=== PATIENT | female | born 1980 | race American Indian/Alaskan Native ===

== ENCOUNTER 2020-12-29 22:04 | Emergency (ER) | payer SELFPAY | END 2020-12-30 00:53 | disposition left against medical advice (07) | LOC: ED 22:04 | DX: M54.9 Dorsalgia, unspecified (principal); Z53.21 Procedure and treatment not carried out due to patient leaving prior to being seen by health care provider ==

== ENCOUNTER 2020-12-30 08:37 | Emergency (ER) | payer SELFPAY ==
--- NOTE | 2020-12-30 09:38 | Emergency Department Report ---
ED Back Pain/Injury HPI - General Chief Complaint: Extremity Injury, Lower Stated Complaint: LOW BACK PAIN Time Seen by Provider: 12/30/20 09:38 Source: patient Limitations: No Limitations - History of Present Illness Initial Comments: 40-year-old female who denies any significant past medical history presents to the ER today with complaints of lumbar pain. Patient states that her symptoms gradually started about 2 days ago. Patient states that she had fallen asleep in a sitting position and when she woke up she started having pain in her back. She states that the pain is worse with certain position and certain movements. She states that the pain has been intermittent, and she has been taking [id number] medication as well as using rubs but does provide partial relief of her pain. She states that the pain is nonradiating. She denies any associate abdominal pain with it. She denies any saddle anesthesia, lower extremity numbness, tingling or weakness, bowel or bladder incontinence or any abdominal pain, chest pain or UTI symptoms. Patient denies any prior issues with her back in the past including surgeries. MD Complaint: back pain -: Gradual, days(s) Similar Symptoms Previously: No Place: home - Related Data Previous Rx's Medication Instructions Recorded Last Taken Type Ibuprofen [Motrin] 600 mg PO Q8H PRN #30 tablet 12/30/20 Unknown Rx methOCARBAMOL [Robaxin TAB] 750 mg PO Q8H PRN #30 tablet 12/30/20 Unknown Rx methylPREDNISolone [Medrol 4MG 4 mg PO DAILY #1 tab.ds.pk 12/30/20 Unknown Rx DOSEPAK (21 tabs)] Allergies Allergy/AdvReac Type Severity Reaction Status Date / Time No Known Allergies Allergy Unverified 12/30/20 09:32 ED Review of Systems ROS: Stated complaint: LOW BACK PAIN Other details as noted in HPI Comment: All other systems reviewed and negative Constitutional: denies: chills, fever Eyes: denies: eye pain, eye discharge, vision change ENT: denies: ear pain, throat pain Respiratory: denies: cough, shortness of breath, SOB with exertion, SOB at rest, wheezing Cardiovascular: denies: chest pain, palpitations Endocrine: no symptoms reported Gastrointestinal: denies: abdominal pain, nausea, vomiting, diarrhea, constipation, hematemesis, hematochezia Genitourinary: denies: urgency, dysuria, frequency, hematuria, discharge, abnormal menses, dyspareunia Musculoskeletal: back pain. denies: joint swelling, arthralgia, myalgia Skin: denies: rash, lesions, change in color, change in hair/nails, pruritus Neurological: denies: headache, weakness, numbness, paresthesias, confusion, ab normal gait, vertigo Psychiatric: denies: anxiety, depression, auditory hallucinations, visual hallucinations, homicidal thoughts, suicidal thoughts Hematological/Lymphatic: denies: easy bleeding, easy bruising, swollen glands ED Past Medical Hx - Past Medical History Previous Medical History?: No - Surgical History Past Surgical History?: No - Medications Home Medications: Home Medications Medication Instructions Recorded Confirmed Last Taken Type Ibuprofen [Motrin] 600 mg PO Q8H PRN #30 tablet 12/30/20 Unknown Rx methOCARBAMOL [Robaxin TAB] 750 mg PO Q8H PRN #30 tablet 12/30/20 Unknown Rx methylPREDNISolone [Medrol 4MG 4 mg PO DAILY #1 tab.ds.pk 12/30/20 Unknown Rx DOSEPAK (21 tabs)] ED Physical Exam - General Limitations: No Limitations General appearance: alert, in distress (secondary to pain) - Head Head exam: Present: atraumatic, normocephalic, normal inspection - Eye Eye exam: Present: normal appearance, PERRL, EOMI Pupils: Present: normal accommodation - Neck Neck exam: Present: normal inspection, full ROM - Respiratory Respiratory exam: Present: normal lung sounds bilaterally. Absent: respiratory distress, wheezes, rales, rhonchi - Cardiovascular Cardiovascular Exam: Present: regular rate, normal rhythm, normal heart sounds - GI/Abdominal GI/Abdominal exam: Present: soft. Absent: distended, tenderness, guarding, rebound - Back Exam Back exam: Present: full ROM (there is mild pain on flexion and left and right rotation and on extension of lumbar spine but otherwise she has full ROM of spine), muscle spasm (bilateral paraspinal muscle lumbar area), other (Pt pain is more with ROM, then on palpation). Absent: CVA tenderness (R), CVA tenderness (L), paraspinal tenderness, vertebral tenderness - Neurological Exam Neurological exam: Present: alert, oriented X3, CN II-XII intact, normal gait. Absent: motor sensory deficit - Psychiatric Psychiatric exam: Present: normal affect, normal mood - Skin Skin exam: Present: intact ED Course Vital Signs 12/30/20 12/30/20 12/30/20 09:30 10:57 12:28 Temperature 98.2 F Pulse Rate 89 Respiratory 20 16 Rate Blood Pressure 187/110 Blood Pressure 184/101 [Left] Blood Pressure 206/105 [Right] O2 Sat by Pulse 100 Oximetry 12/30/20 12/30/20 12/30/20 12:29 13:05 14:00 Temperature Pulse Rate 66 68 Respiratory 16 16 16 Rate Blood Pressure Blood Pressure [Left] Blood Pressure 142/91 138/89 [Right] O2 Sat by Pulse 98 Oximetry ED Medical Decision Making - Lab Data Result diagrams: 12/30/20 11:44 12/30/20 11:44 - Medical Decision Making Patient currently resting comfortably. She reports improvement of her pain after oral meds given here in the ER. She is currently not toxic or ill- appearing. She is not in any severe distress. She is neurologically intact with a normal gait. All labs reviewed and unremarkable Patient blood pressure improved Her history, physical examination and diagnostic testing does not suggest the presence of acute spinal epidural abscess, acute epidural bleed, cauda equina syndrome, abdominal/thoracic aortic aneurysm, aortic dissection, UTI, kidney stone, pyelonephritis or other acute process requiring further testing, treatment or consultation in the emergency department at this time. Suspect back spasms. Discussed lab results with patient. Informed her that her BP has improved during but recommend that she follows up with her PCP for continue monitoring and to see if she may need to be started on blood pressure medication. Discussed suspected diagnosis and treatment plan with patient. Patient expressed und erstanding of all instructions and agree with plan. Patient was stable at time of discharge. Critical care attestation.: If time is entered above; I have spent that time in minutes in the direct care of this critically ill patient, excluding procedure time. ED Disposition Clinical Impression: Back muscle spasm Disposition: 01 HOME / SELF CARE / HOMELESS Is pt being admited?: No Does the pt Need Aspirin: No Condition: Stable Instructions: Muscle Cramps and Spasms, [id number], Acute Back Pain, Adult, Back Exercises, [id number] Additional Instructions: I recommend that you take the Robaxin, the Medrol Dosepak, and ibuprofen as prescribed. I recommend that you do the back stretching exercises listed on your discharge instructions. I recommend that you follow-up with either your primary care doctor continued monitoring of your blood pressure or the technical service specialist provided on your discharge instructions especially if your symptoms continue for another 1 to 2 weeks. Return to the ER if your symptoms changes or worsens in any way. Prescriptions: methylPREDNISolone [Medrol 4MG DOSEPAK (21 tabs)] 4 mg PO DAILY #1 tab.ds.pk Ibuprofen [Motrin] 600 mg PO Q8H PRN #30 tablet PRN Reason: Pain methOCARBAMOL [Robaxin TAB] 750 mg PO Q8H PRN #30 tablet PRN Reason: Muscle Spasm Referrals: [facility] [Provider Group] - 3-5 Days (Primary care physician) NICOLASA FINN MD [Staff Physician] - 3-5 Days (Primary care physician) [facility] [Provider Group] - 3-5 Days (Orthospine specialist) Forms: Work/School Release Form(ED) Time of Disposition: 09:48
[2020-12-30] MEDS ORDERED: HYDROcodone/ACETAMINOPHEN 5-325 MG TAB PO ONE (10:58)
[2020-12-30] MEDS ORDERED: KETOROLAC 60 MG/2 ML INJ IM ONE (10:58)
[2020-12-30] MEDS ORDERED: CYCLOBENZAPRINE 10 MG TAB PO ONE (10:58)
[2020-12-30 11:26] LABS: Bilirubin,Urine NEG (Negative); Blood,Urine NEG (Negative); Color,Urine Yellow (Yellow); Mucus,Urine FEW /HPF
[2020-12-30 12:07] LABS: Protein,Urine <15 mg/dL mg/dL (Negative)
[2020-12-30 12:32] LABS: Basophils % (Auto) 0.2 % (0.0-1.8); Eosinophils % (Auto) 0.3 % (0.0-4.3); Hematocrit 37.1 % (30.3-42.9); Hemoglobin 12.5 gm/dl (10.1-14.3); Lymphocytes # (Auto) 2.3 K/mm3 (1.2-5.4); Lymphocytes % (Auto) 41.6 % (13.4-35.0); Mean Corpuscular HGB Conc 34 % (30-34); Mean Corpuscular Volume 91 fl (79-97); Monocytes # (Auto) 0.5 K/mm3 (0.0-0.8); Monocytes % (Auto) 8.4 % (0.0-7.3); Platelet Count 212 K/mm3 (140-440); Red Blood Count 4.07 M/mm3 (3.65-5.03)
[2020-12-30 12:48] LABS: Alanine Aminotransferase 11 units/L (7-56); Albumin 4.5 g/dL (3.9-5); Blood Urea Nitrogen 11 mg/dL (7-17); Calcium 9.7 mg/dL (8.4-10.2); Hemolysis Index 1
[2020-12-30 12:51] LABS: BUN/Creatinine Ratio 22
[2020-12-30 14:02] VITALS: BP 138/89
== END 2020-12-30 14:00 | disposition home or self-care (01) ==
LOC: ED 08:37
DX: M62.830 Muscle spasm of back (principal); M54.5 Low back pain; Z79.899 Other long term (current) drug therapy
CPT/HCPCS: 36415; 80053; 81001; 84703; 85025; 96372; 99283; J1885

== ENCOUNTER 2021-08-02 17:15 | Emergency (ER) | payer MEDICAID, OTHER ==
[2021-08-02] MEDS ORDERED: KETOROLAC 10 MG TAB PO ONE (19:33)
[2021-08-02] MEDS ORDERED: DEXAMETHASONE 4 MG TAB PO ONE (19:33)
[2021-08-02] MEDS ORDERED: oxyCODONE /ACETAMINOPHEN 5-325MG TAB PO ONE (19:33)
[2021-08-02] MEDS ORDERED: AMOXICILLIN/K CLAV 875/125MG TAB PO ONE (19:33)
--- NOTE | 2021-08-02 19:37 | Emergency Department Report ---
ED ENT HPI - General Chief complaint: Dental/Oral Stated complaint: TOOTHACHE Time Seen by Provider: 08/02/21 18:15 Source: patient Mode of arrival: Ambulatory Limitations: No Limitations - History of Present Illness Initial comments: 40-year-old black female with no past medical history presents to the emergency department for evaluation of 2-day history of worsening right lower toothache with right jaw pain and swelling. She denies fever and states that pain has been unrelieved by ibuprofen and Tylenol. MD complaint: tooth pain -: days(s) (To) Location: tooth # (31) Severity: severe Severity scale (0 -10): 10 Quality: aching Consistency: constant Context- Dental: history of dental caries, poor dental care Associated Symptoms: gum swelling, toothache. denies: fever, pain with swallowing, sore throat, rhinorrhea - Related Data Previous Rx's Medication Instructions Recorded Last Taken Type Ibuprofen [Motrin] 600 mg PO Q8H PRN #30 tablet 12/30/20 Unknown Rx methOCARBAMOL [Robaxin TAB] 750 mg PO Q8H PRN #30 tablet 12/30/20 Unknown Rx methylPREDNISolone [Medrol 4MG 4 mg PO DAILY #1 tab.ds.pk 12/30/20 Unknown Rx DOSEPAK (21 tabs)] Acetaminophen/Codeine [Tylenol 1 tab PO Q6H PRN #10 tab 08/02/21 Unknown Rx /Codeine # 3 tab] Amoxicillin/K Clav Tab [Augmentin 1 tab PO Q12HR #14 tab 08/02/21 Unknown Rx 875 mg] Ketorolac [Toradol] 10 mg PO Q6H PRN #10 tab 08/02/21 Unknown Rx Allergies Allergy/AdvReac Type Severity Reaction Status Date / Time No Known Allergies Allergy Unverified 12/30/20 09:32 ED Dental HPI - General Chief complaint: Dental/Oral Stated complaint: TOOTHACHE Time Seen by Provider: 08/02/21 18:15 Source: patient Mode of arrival: Ambulatory Limitations: No Limitations - Related Data Previous Rx's Medication Instructions Recorded Last Taken Type Ibuprofen [Motrin] 600 mg PO Q8H PRN #30 tablet 12/30/20 Unknown Rx methOCARBAMOL [Robaxin TAB] 750 mg PO Q8H PRN #30 tablet 12/30/20 Unknown Rx methylPREDNISolone [Medrol 4MG 4 mg PO DAILY #1 tab.ds.pk 12/30/20 Unknown Rx DOSEPAK (21 tabs)] Acetaminophen/Codeine [Tylenol 1 tab PO Q6H PRN #10 tab 08/02/21 Unknown Rx /Codeine # 3 tab] Amoxicillin/K Clav Tab [Augmentin 1 tab PO Q12HR #14 tab 08/02/21 Unknown Rx 875 mg] Ketorolac [Toradol] 10 mg PO Q6H PRN #10 tab 08/02/21 Unknown Rx Allergies Allergy/AdvReac Type Severity Reaction Status Date / Time No Known Allergies Allergy Unverified 12/30/20 09:32 ED Review of Systems ROS: Stated complaint: TOOTHACHE Other details as noted in HPI Comment: All other systems reviewed and negative Constitutional: denies: chills, fever Eyes: denies: vision change ENT: dental pain. denies: ear pain, throat pain, epistaxis, congestion Respiratory: denies: shortness of breath Cardiovascular: denies: chest pain, palpitations, dyspnea on exertion Gastrointestinal: denies: abdominal pain, nausea, vomiting Genitourinary: denies: dysuria Musculoskeletal: denies: back pain ED Past Medical Hx - Past Medical History Previous Medical History?: Yes Hx Hypertension: Yes (no meds) - Surgical History Past Surgical History?: No - Medications Home Medications: Home Medications Medication Instructions Recorded Confirmed Last Taken Type Ibuprofen [Motrin] 600 mg PO Q8H PRN #30 tablet 12/30/20 Unknown Rx methOCARBAMOL [Robaxin TAB] 750 mg PO Q8H PRN #30 tablet 12/30/20 Unknown Rx methylPREDNISolone [Medrol 4MG 4 mg PO DAILY #1 tab.ds.pk 12/30/20 Unknown Rx DOSEPAK (21 tabs)] Acetaminophen/Codeine [Tylenol 1 tab PO Q6H PRN #10 tab 08/02/21 Unknown Rx /Codeine # 3 tab] Amoxicillin/K Clav Tab [Augmentin 1 tab PO Q12HR #14 tab 08/02/21 Unknown Rx 875 mg] Ketorolac [Toradol] 10 mg PO Q6H PRN #10 tab 08/02/21 Unknown Rx ED Physical Exam - General Limitations: No Limitations General appearance: alert, in no apparent distress - Head Head exam: Present: atraumatic, normocephalic - Expanded Head Exam Expanded 1 - Tenderness and swelling noted - Eye Eye exam: Present: normal appearance. Absent: conjunctival injection - Expanded ENT Exam Expanded Mouth exam: Present: normal external inspection Teeth exam: Present: dental caries, dental tenderness # (31), other (Dental abscess noted around tooth #31 along with erythema and edema to jaw surrounding same area. Area tender to any touch.) - Respiratory Respiratory exam: Absent: respiratory distress - Cardiovascular Cardiovascular Exam: Present: bradycardia - GI/Abdominal GI/Abdominal exam: Absent: distended - Extremities Exam Extremities exam: Present: normal inspection - Back Exam Back exam: Present: normal inspection - Neurological Exam Neurological exam: Present: alert, oriented X3 - Psychiatric Psychiatric exam: Present: normal affect, normal mood - Skin Skin exam: Present: warm, dry, intact, normal color ED Course Vital Signs 08/02/21 17:49 Temperature 98.8 F Pulse Rate 48 L Respiratory 20 Rate Blood Pressure 207/88 [Right] O2 Sat by Pulse 99 Oximetry ED Medical Decision Making - Medical Decision Making 40-year-old black female with no past medical history presents to the emergency department for evaluation of 2-day history of worsening right lower toothache with right jaw pain and swelling. She denies fever and states that pain has been unrelieved by ibuprofen and Tylenol. Abscess noted to tooth #31. Patient will be treated with antibiotics, anti- inflammatories, and pain medication. She is advised to follow-up with dentist as soon as possible for further management. She verbalized understanding of and agreement with plan of care. Critical care attestation.: If time is entered above; I have spent that time in minutes in the direct care of this critically ill patient, excluding procedure time. ED Disposition Clinical Impression: Dental abscess Disposition: HOME / SELF CARE / HOMELESS Is pt being admited?: No Does the pt Need Aspirin: No Condition: Stable Instructions: Dental Abscess, [id number] Additional Instructions: Take medications as prescribed. Follow-up with dentist Prescriptions: Amoxicillin/K Clav Tab [Augmentin 875 mg] 1 tab PO Q12HR #14 tab Ketorolac [Toradol] 10 mg PO Q6H PRN #10 tab PRN Reason: Pain Acetaminophen/Codeine [Tylenol /Codeine # 3 tab] 1 tab PO Q6H PRN #10 tab PRN Reason: Pain , Severe (7-10) Referrals: [facility] [Outside] - 3-5 Days [facility] [Outside] - 3-5 Days Time of Disposition: 19:37
[2021-08-02 20:40] VITALS: BP 198/92
== END 2021-08-02 20:42 | disposition home or self-care (01) ==
LOC: ED 17:15
DX: K04.7 Periapical abscess without sinus (principal); I10 Essential (primary) hypertension; Z79.899 Other long term (current) drug therapy
CPT/HCPCS: 99282; J8540

== ENCOUNTER 2021-09-29 02:54 | Emergency (ER) | payer SELFPAY ==
--- NOTE | 2021-09-29 08:01 | Emergency Department Report ---
ED ENT HPI - General Chief complaint: Dental/Oral Stated complaint: TOOTHACHE Time Seen by Provider: 09/29/21 07:47 Source: patient Mode of arrival: Ambulatory Limitations: No Limitations - History of Present Illness Initial comments: 40-year-old female presents to the ER today with complaints of dental pain to her right lower jaw. She states that she had a bad tooth in that area for a while but yesterday it started to become painful and swollen. She does not currently have a dentist. She denies any difficulty swallowing,, trismus, difficulty breathing, fever, chills or any additional symptoms MD complaint: tooth pain -: days(s) Severity: moderate, severe - Related Data Previous Rx's Medication Instructions Recorded Last Taken Type methOCARBAMOL [Robaxin TAB] 750 mg PO Q8H PRN #30 tablet 12/30/20 Unknown Rx methylPREDNISolone [Medrol 4MG 4 mg PO DAILY #1 tab.ds.pk 12/30/20 Unknown Rx DOSEPAK (21 tabs)] Amoxicillin/K Clav Tab [Augmentin 1 tab PO Q12HR #14 tab 08/02/21 Unknown Rx 875 mg] Ketorolac [Toradol] 10 mg PO Q6H PRN #10 tab 08/02/21 Unknown Rx Acetaminophen/Codeine [Tylenol 1 tab PO Q6H PRN #10 tab 09/29/21 Unknown Rx /Codeine # 3 tab] Clindamycin [Clindamycin CAP] 300 mg PO Q6H #40 cap 09/29/21 Unknown Rx Ibuprofen [Motrin 600 MG tab] 600 mg PO Q8H PRN #30 tablet 09/29/21 Unknown Rx Allergies Allergy/AdvReac Type Severity Reaction Status Date / Time No Known Allergies Allergy Unverified 12/30/20 09:32 ED Dental HPI - General Chief complaint: Dental/Oral Stated complaint: TOOTHACHE Time Seen by Provider: 09/29/21 07:47 Source: patient Mode of arrival: Ambulatory Limitations: No Limitations - Related Data Previous Rx's Medication Instructions Recorded Last Taken Type methOCARBAMOL [Robaxin TAB] 750 mg PO Q8H PRN #30 tablet 12/30/20 Unknown Rx methylPREDNISolone [Medrol 4MG 4 mg PO DAILY #1 tab.ds.pk 12/30/20 Unknown Rx DOSEPAK (21 tabs)] Amoxicillin/K Clav Tab [Augmentin 1 tab PO Q12HR #14 tab 08/02/21 Unknown Rx 875 mg] Ketorolac [Toradol] 10 mg PO Q6H PRN #10 tab 08/02/21 Unknown Rx Acetaminophen/Codeine [Tylenol 1 tab PO Q6H PRN #10 tab 09/29/21 Unknown Rx /Codeine # 3 tab] Clindamycin [Clindamycin CAP] 300 mg PO Q6H #40 cap 09/29/21 Unknown Rx Ibuprofen [Motrin 600 MG tab] 600 mg PO Q8H PRN #30 tablet 09/29/21 Unknown Rx Allergies Allergy/AdvReac Type Severity Reaction Status Date / Time No Known Allergies Allergy Unverified 12/30/20 09:32 ED Review of Systems ROS: Stated complaint: TOOTHACHE Other details as noted in HPI Comment: All other systems reviewed and negative Constitutional: denies: chills, fever Eyes: denies: eye pain, eye discharge, vision change ENT: dental pain Respiratory: denies: cough, shortness of breath, wheezing Cardiovascular: denies: chest pain, palpitations Gastrointestinal: denies: abdominal pain, nausea, diarrhea Genitourinary: denies: urgency, dysuria, discharge Neurological: denies: headache, weakness, paresthesias Psychiatric: denies: anxiety, depression Hematological/Lymphatic: denies: easy bleeding, easy bruising ED Past Medical Hx - Past Medical History Hx Hypertension: Yes (no meds) - Medications Home Medications: Home Medications Medication Instructions Recorded Confirmed Last Taken Type methOCARBAMOL [Robaxin TAB] 750 mg PO Q8H PRN #30 tablet 12/30/20 Unknown Rx methylPREDNISolone [Medrol 4MG 4 mg PO DAILY #1 tab.ds.pk 12/30/20 Unknown Rx DOSEPAK (21 tabs)] Amoxicillin/K Clav Tab [Augmentin 1 tab PO Q12HR #14 tab 08/02/21 Unknown Rx 875 mg] Ketorolac [Toradol] 10 mg PO Q6H PRN #10 tab 08/02/21 Unknown Rx Acetaminophen/Codeine [Tylenol 1 tab PO Q6H PRN #10 tab 09/29/21 Unknown Rx /Codeine # 3 tab] Clindamycin [Clindamycin CAP] 300 mg PO Q6H #40 cap 09/29/21 Unknown Rx Ibuprofen [Motrin 600 MG tab] 600 mg PO Q8H PRN #30 tablet 09/29/21 Unknown Rx ED Physical Exam - General Limitations: No Limitations General appearance: alert, in no apparent distress - Head Head exam: Present: atraumatic, normocephalic, normal inspection - Eye Eye exam: Present: normal appearance, PERRL, EOMI Pupils: Present: normal accommodation - ENT ENT exam: Present: mucous membranes moist - Expanded ENT Exam Expanded Mouth exam: Present: other (Mild swelling right lower jaw, no facial cellulitis). Absent: drooling, trismus, muffled voice, tongue normal, tongue elevation, laceration Teeth exam: Present: dental caries, dental tenderness # 1 - Dental Tenderness (moderate), Other (severe dental decay with associated dental abscess) Throat exam: Positive: normal inspection - Neck Neck exam: Present: normal inspection, full ROM. Absent: meningismus - Respiratory Respiratory exam: Absent: respiratory distress - Cardiovascular Cardiovascular Exam: Present: regular rate - Neurological Exam Neurological exam: Present: alert, oriented X3, CN II-XII intact, normal gait - Psychiatric Psychiatric exam: Present: normal affect, normal mood ED Course Vital Signs 09/29/21 03:14 Temperature 97.6 F Pulse Rate 85 Respiratory 13 Rate Blood Pressure 153/90 O2 Sat by Pulse 99 Oximetry Critical care attestation.: If time is entered above; I have spent that time in minutes in the direct care of this critically ill patient, excluding procedure time. ED Disposition Clinical Impression: Dental abscess Disposition: 01 HOME / SELF CARE / HOMELESS Is pt being admited?: No Does the pt Need Aspirin: No Condition: Stable Instructions: Dental Abscess, [id number] Additional Instructions: I recommend that you take the antibiotics and take them to completion. Take the ibuprofen to help with pain and you can do warm salt water rinses. Follow-up with the dental clinics on the dental list given to you. Return to the ER if symptoms changes or worsens in any way. Prescriptions: Clindamycin [Clindamycin CAP] 300 mg PO Q6H #40 cap Ibuprofen [Motrin 600 MG tab] 600 mg PO Q8H PRN #30 tablet PRN Reason: Pain Acetaminophen/Codeine [Tylenol /Codeine # 3 tab] 1 tab PO Q6H PRN #10 tab PRN Reason: Pain , Severe (7-10) Referrals: ELIJAH MOSS MD [Staff Physician] - 3-5 Days Time of Disposition: 08:01
[2021-09-29 08:42] VITALS: BP 124/78
== END 2021-09-29 08:42 | disposition home or self-care (01) ==
LOC: ED 02:54
DX: K04.7 Periapical abscess without sinus (principal); I10 Essential (primary) hypertension
CPT/HCPCS: 99282

== ENCOUNTER 2021-11-04 10:28 | Emergency (ER) | payer MEDICAID | END 2021-11-04 17:37 | disposition left against medical advice (07) | LOC: ED 10:28 | DX: R51.9 Headache, unspecified (principal); K08.89 Other specified disorders of teeth and supporting structures; Z53.21 Procedure and treatment not carried out due to patient leaving prior to being seen by health care provider ==

== ENCOUNTER 2021-11-05 10:33 | Emergency (ER) | payer SELFPAY ==
--- NOTE | 2021-11-05 10:53 | Emergency Department Report ---
ED ENT HPI - General Chief complaint: Dental/Oral Stated complaint: RT SIDE TOOTHACHE Time Seen by Provider: 11/05/21 10:46 Source: patient Mode of arrival: Ambulatory Limitations: No Limitations - History of Present Illness Initial comments: Patient is a 40-year-old that comes to the emergency room complaining of right lower dental pain. 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 She states she did finally get an appointment for December. But the pain in her right mandibular molar is worsening. She has no Ludewig's. No trismus. No abscess. She is controlling secretions. Ambulatory to ER with no difficulty - Related Data Previous Rx's Medication Instructions Recorded Last Taken Type methOCARBAMOL [Robaxin TAB] 750 mg PO Q8H PRN #30 tablet 12/30/20 Unknown Rx methylPREDNISolone [Medrol 4MG 4 mg PO DAILY #1 tab.ds.pk 12/30/20 Unknown Rx DOSEPAK (21 tabs)] Amoxicillin/K Clav Tab [Augmentin 1 tab PO Q12HR #14 tab 08/02/21 Unknown Rx 875 mg] Ketorolac [Toradol] 10 mg PO Q6H PRN #10 tab 08/02/21 Unknown Rx Acetaminophen/Codeine [Tylenol 1 tab PO Q6H PRN #10 tab 09/29/21 Unknown Rx /Codeine # 3 tab] Clindamycin [Clindamycin CAP] 300 mg PO Q6H #40 cap 09/29/21 Unknown Rx Ibuprofen [Motrin 600 MG tab] 600 mg PO Q8H PRN #30 tablet 09/29/21 Unknown Rx Amoxicillin [Trimox CAP] 500 mg PO BID #20 capsule 11/05/21 Unknown Rx Ibuprofen [Motrin] 800 mg PO Q8HR PRN #30 tablet 11/05/21 Unknown Rx Allergies Allergy/AdvReac Type Severity Reaction Status Date / Time No Known Allergies Allergy Unverified 12/30/20 09:32 ED Dental HPI - General Chief complaint: Dental/Oral Stated complaint: RT SIDE TOOTHACHE Time Seen by Provider: 11/05/21 10:46 Source: patient Mode of arrival: Ambulatory Limitations: No Limitations - Related Data Previous Rx's Medication Instructions Recorded Last Taken Type methOCARBAMOL [Robaxin TAB] 750 mg PO Q8H PRN #30 tablet 08/24/21 Unknown Rx methylPREDNISolone [Medrol 4MG 4 mg PO DAILY #1 tab.ds.pk 12/30/20 Unknown Rx DOSEPAK (21 tabs)] Amoxicillin/K Clav Tab [Augmentin 1 tab PO Q12HR #14 tab 08/02/21 Unknown Rx 875 mg] Ketorolac [Toradol] 10 mg PO Q6H PRN #10 tab 08/02/21 Unknown Rx Acetaminophen/Codeine [Tylenol 1 tab PO Q6H PRN #10 tab 09/29/21 Unknown Rx /Codeine # 3 tab] Clindamycin [Clindamycin CAP] 300 mg PO Q6H #40 cap 09/29/21 Unknown Rx Ibuprofen [Motrin 600 MG tab] 600 mg PO Q8H PRN #30 tablet 09/29/21 Unknown Rx Amoxicillin [Trimox CAP] 500 mg PO BID #20 capsule 11/05/21 Unknown Rx Ibuprofen [Motrin] 800 mg PO Q8HR PRN #30 tablet 11/05/21 Unknown Rx Allergies Allergy/AdvReac Type Severity Reaction Status Date / Time No Known Allergies Allergy Unverified 12/30/20 09:32 ED Review of Systems ROS: Stated complaint: RT SIDE TOOTHACHE Other details as noted in HPI Comment: All other systems reviewed and negative ED Past Medical Hx - Past Medical History Previous Medical History?: Yes Hx Hypertension: Yes (no meds) - Surgical History Past Surgical History?: No - Family History Family history: no significant - Social History Smoking Status: Never Smoker Substance Use Type: None - Medications Home Medications: Home Medications Medication Instructions Recorded Confirmed Last Taken Type methOCARBAMOL [Robaxin TAB] 750 mg PO Q8H PRN #30 tablet 12/30/20 Unknown Rx methylPREDNISolone [Medrol 4MG 4 mg PO DAILY #1 tab.ds.pk 12/30/20 Unknown Rx DOSEPAK (21 tabs)] Amoxicillin/K Clav Tab [Augmentin 1 tab PO Q12HR #14 tab 08/02/21 Unknown Rx 875 mg] Ketorolac [Toradol] 10 mg PO Q6H PRN #10 tab 08/02/21 Unknown Rx Acetaminophen/Codeine [Tylenol 1 tab PO Q6H PRN #10 tab 09/29/21 Unknown Rx /Codeine # 3 tab] Clindamycin [Clindamycin CAP] 300 mg PO Q6H #40 cap 09/29/21 Unknown Rx Ibuprofen [Motrin 600 MG tab] 600 mg PO Q8H PRN #30 tablet 09/29/21 Unknown Rx Amoxicillin [Trimox CAP] 500 mg PO BID #20 capsule 11/05/21 Unknown Rx Ibuprofen [Motrin] 800 mg PO Q8HR PRN #30 tablet 11/05/21 Unknown Rx ED Physical Exam - General Limitations: No Limitations General appearance: alert, in no apparent distress - Head Head exam: Present: atraumatic, normocephalic - Eye Eye exam: Present: normal appearance - ENT ENT exam: Present: mucous membranes moist - Expanded ENT Exam Expanded Mouth exam: Absent: drooling, trismus, muffled voice Teeth exam: Present: dental caries 1 - Other (Caries) Throat exam: Positive: normal inspection - Neck Neck exam: Present: normal inspection - Respiratory Respiratory exam: Present: normal lung sounds bilaterally. Absent: respiratory distress - Cardiovascular Cardiovascular Exam: Present: regular rate, normal rhythm. Absent: systolic murmur, diastolic murmur, rubs, gallop - GI/Abdominal GI/Abdominal exam: Present: soft, normal bowel sounds - Extremities Exam Extremities exam: Present: normal inspection - Back Exam Back exam: Present: normal inspection - Neurological Exam Neurological exam: Present: alert, oriented X3 - Psychiatric Psychiatric exam: Present: normal affect, normal mood - Skin Skin exam: Present: warm, dry, intact, normal color. Absent: rash ED Course Vital Signs 11/05/21 10:39 Temperature 99.4 F Pulse Rate 109 H Respiratory 16 Rate Blood Pressure 166/107 [Right] O2 Sat by Pulse 100 Oximetry ED Medical Decision Making - Medical Decision Making Vital Signs 11/05/21 10:39 Temperature 99.4 F Pulse Rate 109 H Respiratory 16 Rate Blood Pressure 166/107 [Right] O2 Sat by Pulse 100 Oximetry Heart rate on provider exam 90. Patient states her blood pressure is always elevated when she is in pain. No trismus, drooling, abscess or Ludewig's. Patient being discharged home with discharge plan of care. Patient verbalizes understanding of plan of care - Differential Diagnosis DENTAL PAIN Critical care attestation.: If time is entered above; I have spent that time in minutes in the direct care of this critically ill patient, excluding procedure time. ED Disposition Clinical Impression: Pain, dental Disposition: 01 HOME / SELF CARE / HOMELESS Is pt being admited?: No Does the pt Need Aspirin: No Condition: Stable Instructions: Acute Pain, Adult Additional Instructions: MED ORDERED TODAY UNTIL GONE SEE DENTIST ZIYAD Prescriptions: Ibuprofen [Motrin] 800 mg PO Q8HR PRN #30 tablet PRN Reason: Pain, Moderate (4-6) Amoxicillin [Trimox CAP] 500 mg PO BID #20 capsule Referrals: [facility] [Outside] - 3-5 Days [facility] [Outside] - 3-5 Days Forms: Work/School Release Form(ED) Time of Disposition: 10:57
[2021-11-05] MEDS ORDERED: AMOXICILLIN 500 MG CAP PO ONE (10:58)
[2021-11-05] MEDS ORDERED: IBUPROFEN 800 MG TAB PO ONE (10:58)
[2021-11-05 12:17] VITALS: BP 158/98
== END 2021-11-05 12:17 | disposition home or self-care (01) ==
LOC: ED 10:33
DX: K08.89 Other specified disorders of teeth and supporting structures (principal); I10 Essential (primary) hypertension; Z79.899 Other long term (current) drug therapy
CPT/HCPCS: 99282

== ENCOUNTER 2022-01-07 10:00 | Emergency (ER) | payer SELFPAY ==
[2022-01-07 12:15] VITALS: BP 173/95
[2022-01-07] MEDS ORDERED: dexAMETHasone 4 MG/ML VIAL IM ONE (12:25)
[2022-01-07] MEDS ORDERED: CLINDAMYCIN 150 MG/ML VIAL 6 ML IM ONE (12:25)
[2022-01-07] MEDS ORDERED: ACETAMINOPHEN 500 MG TAB PO ONE (12:25)
--- NOTE | 2022-01-07 12:25 | Emergency Department Report ---
ED ENT HPI - General Chief complaint: Dental/Oral Stated complaint: ABSCESS Time Seen by Provider: 01/07/22 12:23 Source: patient Mode of arrival: Ambulatory Limitations: No Limitations - History of Present Illness Initial comments: 41 yo comes in with left lower mandibular dental pain and swelling that occurred overnight. taking po nad abc intact MD complaint: tooth pain -: Sudden, hour(s) 1 - caries Severity scale (0 -10): 5 Quality: aching Consistency: constant Improves with: none Worsens with: none Associated Symptoms: gum swelling, toothache. denies: fever, cough, pain with swallowing, sore throat, tinnitus, hearing loss, discharge from ear, rhinorrhea - Related Data Previous Rx's Medication Instructions Recorded Last Taken Type Clindamycin [Clindamycin CAP] 300 mg PO Q8H #30 cap 01/07/22 Unknown Rx Ibuprofen [Motrin] 800 mg PO Q8HR PRN #30 tablet 01/07/22 Unknown Rx Allergies Allergy/AdvReac Type Severity Reaction Status Date / Time No Known Allergies Allergy Verified 01/07/22 12:16 ED Dental HPI - General Chief complaint: Dental/Oral Stated complaint: ABSCESS Time Seen by Provider: 01/07/22 12:23 Source: patient Mode of arrival: Ambulatory Limitations: No Limitations - Related Data Previous Rx's Medication Instructions Recorded Last Taken Type Clindamycin [Clindamycin CAP] 300 mg PO Q8H #30 cap 01/07/22 Unknown Rx Ibuprofen [Motrin] 800 mg PO Q8HR PRN #30 tablet 01/07/22 Unknown Rx Allergies Allergy/AdvReac Type Severity Reaction Status Date / Time No Known Allergies Allergy Verified 01/07/22 12:16 ED Review of Systems ROS: Stated complaint: ABSCESS Other details as noted in HPI Comment: All other systems reviewed and negative ED Past Medical Hx - Past Medical History Previous Medical History?: Yes Hx Hypertension: Yes (no meds) - Surgical History Past Surgical History?: No - Family History Family history: no significant - Social History Smoking Status: Never Smoker Substance Use Type: None - Medications Home Medications: Home Medications Medication Instructions Recorded Confirmed Last Taken Type Clindamycin [Clindamycin CAP] 300 mg PO Q8H #30 cap 01/07/22 Unknown Rx Ibuprofen [Motrin] 800 mg PO Q8HR PRN #30 tablet 01/07/22 Unknown Rx ED Physical Exam - General Limitations: No Limitations General appearance: alert, in no apparent distress - Head Head exam: Present: atraumatic, normocephalic - Eye Eye exam: Present: normal appearance - ENT ENT exam: Present: mucous membranes moist - Expanded ENT Exam Expanded Mouth exam: Absent: drooling, trismus, muffled voice, tongue normal, tongue elevation Teeth exam: Present: dental caries 1 - Other (caries) - Neck Neck exam: Present: normal inspection - Respiratory Respiratory exam: Present: normal lung sounds bilaterally. Absent: respiratory distress - Cardiovascular Cardiovascular Exam: Present: regular rate, normal rhythm. Absent: systolic murmur, diastolic murmur, rubs, gallop - GI/Abdominal GI/Abdominal exam: Present: soft, normal bowel sounds - Extremities Exam Extremities exam: Present: normal inspection - Back Exam Back exam: Present: normal inspection - Neurological Exam Neurological exam: Present: alert, oriented X3 - Psychiatric Psychiatric exam: Present: normal affect, normal mood - Skin Skin exam: Present: warm, dry, intact, normal color. Absent: rash ED Course Vital Signs 01/07/22 12:13 Temperature 98.7 F Pulse Rate 75 Respiratory 16 Rate Blood Pressure 173/95 [Right] O2 Sat by Pulse 100 Oximetry ED Medical Decision Making - Medical Decision Making no ludwigs no pharyngeal abscess no trismus taking po ambulatory nad clinda IM, decadron and motrin in ER dc home with dc plan of care including diet, meds, activity and follow up pt verbalizes understanding of plan of care. Vital Signs 01/07/22 12:13 Temperature 98.7 F Pulse Rate 75 Respiratory 16 Rate Blood Pressure 173/95 [Right] O2 Sat by Pulse 100 Oximetry - Differential Diagnosis dental caries Critical care attestation.: If time is entered above; I have spent that time in minutes in the direct care of this critically ill patient, excluding procedure time. ED Disposition Clinical Impression: Pain, dental Disposition: 01 HOME / SELF CARE / HOMELESS Is pt being admited?: No Does the pt Need Aspirin: No Condition: Stable Instructions: Dental Abscess Additional Instructions: meds as ordered today follow up with dentist dodie referrals below Referrals: [facility] [Outside] - 3-5 Days [facility] [Outside] - 3-5 Days Forms: Work/School Release Form(ED) Time of Disposition: 12:24
== END 2022-01-07 13:28 | disposition home or self-care (01) ==
LOC: ED 10:00
DX: K08.89 Other specified disorders of teeth and supporting structures (principal); I10 Essential (primary) hypertension
CPT/HCPCS: 96372; 99282; J1100